=== PATIENT | male | born 1975 | race Caucasian/White ===

== ENCOUNTER 2023-05-28 19:40 | Emergency (ER) | payer OTHER ==
[~2023-05-28] VITALS: Ht 165.1 cm; Wt 62.4 kg
[~2023-05-28 19:40] MED LIST: ACET-812 PO; NAPR220T67 PO
[2023-05-28 19:41] VITALS: BP 150/95; PULSE 88; TEMP 98.4; O2SAT 99
[2023-05-28] MEDS ORDERED: SULF1TAB49 PO (21:24)
[2023-05-28] MEDS ORDERED: NAPR-56 PO (21:24)
[2023-05-28 21:46] VITALS: RESP 16
[2023-05-28] MEDS: ketorolac trometh inj. 60 MG/2 ML VIAL IM ONE (21:46)
== END 2023-05-28 21:53 | disposition home or self-care (01) ==
LOC: ER 19:40
DX: L03.316 Cellulitis of umbilicus (principal); Z79.899 Other long term (current) drug therapy
CPT/HCPCS: 96372; 99283; J1885

== ENCOUNTER 2023-05-31 17:27 | Inpatient (IN) | payer OTHER ==
[~2023-05-31] VITALS: Ht 165.1 cm; Wt 61.2 kg
[~2023-05-31 17:27] MED LIST changes: +NAPR-56 PO; +SULF1TAB49 PO
[2023-05-31 18:19] LABS: BASOPHILS # (AUTO) 0.1 X10'3 (0-0.2); BASOPHILS % (AUTO) 0.6 % (0-1); EOSINOPHILS % (AUTO) 0.2 % (0-6); HEMATOCRIT 42.4 % (42.0-52.0); HEMOGLOBIN 14.2 g/dl (14.0-17.9); LYMPHOCYTES # (AUTO) 1.1 X10'3 (1.1-4.8); LYMPHOCYTES % (AUTO) 9.2 % (21-51); MEAN CORPUSCULAR HEMOGLOBIN 28.2 PG (27.0-31.0); MEAN CORPUSCULAR HGB CONC 33.5 g/dL (33.0-36.5); MEAN CORPUSCULAR VOLUME 84.1 FL (78-98); MEAN PLATELET VOLUME 9.7 FL (7.4-10.4); MONOCYTES # (AUTO) 0.9 X10'3 (0-0.9); MONOCYTES % (AUTO) 7.8 % (2-12); NEUTROPHILS # (AUTO) 9.6 X10'3 (1.8-7.7); NEUTROPHILS % (AUTO) 82.2 % (42-75); PLATELET COUNT 202 X10'3 (140-440); RED BLOOD COUNT 5.04 X10'6 (4.70-6.10); RED CELL DISTRIBUTION WIDTH 13.8 % (11.5-14.5); WHITE BLOOD COUNT 11.6 X10'3 (4.5-11.0)
[2023-05-31 18:43] LABS: ALBUMIN 3.9 G/DL (3.4-5.0); ANION GAP 9 (8-16); BLOOD UREA NITROGEN 19 MG/DL (7-18); BUN/CREATININE RATIO 15.2 (10.0-20.0); CHLORIDE 101 MMOL/L (99-107); CREATININE 1.25 MG/DL (0.60-1.10); GLUCOSE 114 MG/DL (70-104); POTASSIUM 5.3 MMOL/L (3.5-5.1); PRO BRAIN NATRIURETIC PEPTIDE < 30 PG/ML (0-125); SODIUM 137 MMOL/L (135-145); TOTAL CARBON DIOXIDE 27.5 MMOL/L (24-32); eCRCL 61 ML/MIN; eGFR 61 ML/MIN
[2023-05-31] MEDS ORDERED: iohexol 300mg/ml 100ml inj. ONE (19:25)
[2023-05-31] MEDS ORDERED: potassium Cl 40MEQ/1/2NS 520ml 520 ML IV PRN (21:10)
[2023-05-31] MEDS ORDERED: magnesium Cl slow-release 64mg tablet PO PRN (21:10)
[2023-05-31] MEDS ORDERED: magnesium hydroxide 30ml (MOM) UD suspension PO PRN (21:10)
[2023-05-31] MEDS ORDERED: acetaminophen 325mg tablet PO PRN (21:10)
[2023-05-31] MEDS ORDERED: magnesium 2GM in 50ml NS 50 ML IV PRN (21:10)
[2023-05-31] MEDS ORDERED: potassium Cl 20 mEq SR tablet PO PRN ×2 (21:10)
[2023-05-31] MEDS ORDERED: mag hydrox/Alum hydrox/simeth 30ml oral suspension PO PRN (21:10)
[2023-05-31] MEDS ORDERED: magnesium 4gm in 100ml NS 100 ML IV PRN (21:10)
[2023-05-31] MEDS: ondansetron/PF 4mg/2ml inj IV PRN (22:25)
[2023-05-31] MEDS: normal saline 1000ml 1,000 ML IV SCH (22:26)
[2023-05-31] MEDS: HYDROcodone/acetaminophen 5mg/325mg tablet PO PRN (22:26)
[2023-05-31] MEDS: ceFAZolin/D5W- 1GM premix 50 ML IV SCH (22:30)
[2023-05-31 23:00] VITALS: RESP 18; O2SAT 98
[2023-05-31 23:30] VITALS: BP 118/74; PULSE 78; RESP 16; TEMP 97; O2SAT 96
[2023-06-01] MEDS: morphine 2 MG/ML inj. syringe IV PRN (03:33)
[2023-06-01 06:00] VITALS: BP 120/77; PULSE 81; RESP 18; TEMP 98.2; O2SAT 98
[2023-06-01] MEDS: docusate sod 100mg capsule PO SCH (07:38)
[2023-06-01 07:46] LABS: BASOPHILS # (AUTO) 0.1 X10'3 (0-0.2); BASOPHILS % (AUTO) 0.9 % (0-1); EOSINOPHILS # (AUTO) 0.1 X10'3 (0-0.9); EOSINOPHILS % (AUTO) 1.1 % (0-6); HEMATOCRIT 39.1 % (42.0-52.0); HEMOGLOBIN 13.1 g/dl (14.0-17.9); LYMPHOCYTES # (AUTO) 1.2 X10'3 (1.1-4.8); LYMPHOCYTES % (AUTO) 14.4 % (21-51); MEAN CORPUSCULAR HEMOGLOBIN 28.1 PG (27.0-31.0); MEAN CORPUSCULAR HGB CONC 33.4 g/dL (33.0-36.5); MEAN CORPUSCULAR VOLUME 83.9 FL (78-98); MEAN PLATELET VOLUME 9.6 FL (7.4-10.4); MONOCYTES # (AUTO) 0.9 X10'3 (0-0.9); MONOCYTES % (AUTO) 10.6 % (2-12); NEUTROPHILS # (AUTO) 6.1 X10'3 (1.8-7.7); PLATELET COUNT 172 X10'3 (140-440); RED BLOOD COUNT 4.66 X10'6 (4.70-6.10); RED CELL DISTRIBUTION WIDTH 13.5 % (11.5-14.5); WHITE BLOOD COUNT 8.3 X10'3 (4.5-11.0)
[2023-06-01 08:00] VITALS: RESP 18; O2SAT 98
[2023-06-01] MEDS: K and/or MAG REPLACEMENT MC SCH (08:00)
[2023-06-01 10:02] LABS: ALANINE AMINOTRANSFERASE 27 U/L (12-78); ALBUMIN/GLOBULIN RATIO 0.8 (1.1-1.5); ALKALINE PHOSPHATASE 85 IU/L (46-116); ANION GAP 9 (8-16); ASPARTATE AMINO TRANSFERASE 9 U/L (10-37); BILIRUBIN,TOTAL 0.6 MG/DL (0.1-1.0); BLOOD UREA NITROGEN 17 MG/DL (7-18); BUN/CREATININE RATIO 14.8 (10.0-20.0); CALCIUM 8.2 MG/DL (8.5-10.1); CHLORIDE 103 MMOL/L (99-107); CREATININE 1.15 MG/DL (0.60-1.10); GLUCOSE 87 MG/DL (70-104); POTASSIUM 4.9 MMOL/L (3.5-5.1); SODIUM 137 MMOL/L (135-145); TOTAL CARBON DIOXIDE 25.1 MMOL/L (24-32); TOTAL PROTEIN 6.9 G/DL (6.4-8.2); eCRCL 67 ML/MIN; eGFR 67 ML/MIN
[2023-06-01] MEDS: metoclopramide 5 mg/ml inj IV PRN (12:41)
[2023-06-01 14:53] VITALS: BP 110/65; PULSE 96; RESP 16; O2SAT 97
[2023-06-01 14:58] VITALS: BP 107/71; PULSE 80; RESP 18; O2SAT 98
[2023-06-01] MEDS ORDERED: DOXY150T3 PO (15:48)
[2023-06-01] MEDS ORDERED: ONDA4TAB12 PO (15:48)
[2023-06-01 18:00] VITALS: BP 105/69; PULSE 94; RESP 14; TEMP 97.9; O2SAT 96
[2023-06-01 21:29] VITALS: RESP 16
== END 2023-06-01 22:03 | disposition home or self-care (01) | DRG 602 ==
LOC: ER 17:28 → ED HOLD 21:15 → ORTHO 4S 23:30
PROVIDERS: ADMIT Internal Medicine; ATTEND Internal Medicine
PROC: BW211ZZ Computerized Tomography (CT Scan) of Abdomen and Pelvis using Low Osmolar Contrast (ICD-10-PCS; 2023-05-31)
PROC: 0W9F3ZZ Drainage of Abdominal Wall, Percutaneous Approach (ICD-10-PCS; principal; 2023-06-01)
DX: L02.216 Cutaneous abscess of umbilicus (principal); N17.0 Acute kidney failure with tubular necrosis; K42.9 Umbilical hernia without obstruction or gangrene
CPT/HCPCS: 10160; 36415; 71045; 74176; 76942; 80048; 80053; 83880; 84145; 84484; 85025; 85651; 87070; 87075; 87077; 87081; 87102; 87186; 93005; 99285; G0378; J0690; J2270; J2405; J2765; J3490; J7030; Q9967

== ENCOUNTER 2023-06-06 09:45 | Inpatient (IN) | payer OTHER ==
[~2023-06-06] VITALS: Ht 165.1 cm; Wt 70.0 kg
[~2023-06-06 09:45] MED LIST changes: +DOXY150T3 PO; -NAPR-56 PO; -NAPR220T67 PO; +ONDA4TAB12 PO; -SULF1TAB49 PO
[2023-06-06] MEDS: piperacillin/tazo 4.5gm/100ml IVPB IV ONE (10:55)
[2023-06-06] MEDS: VANCOMYCIN 1,500MG in normal saline IV soln 300 ML IV ONE (10:55)
[2023-06-06] MEDS ORDERED: potassium Cl 40MEQ/1/2NS 520ml 520 ML IV PRN (12:40)
[2023-06-06] MEDS ORDERED: magnesium 4gm in 100ml NS 100 ML IV PRN (12:40)
[2023-06-06] MEDS ORDERED: magnesium 2GM in 50ml NS 50 ML IV PRN (12:40)
[2023-06-06] MEDS ORDERED: potassium Cl 20 mEq SR tablet PO PRN ×2 (12:40)
[2023-06-06] MEDS ORDERED: acetaminophen 325mg tablet PO PRN (12:40)
[2023-06-06] MEDS ORDERED: magnesium Cl slow-release 64mg tablet PO PRN (12:40)
[2023-06-06] MEDS: normal saline 1000ml 1,000 ML IV SCH (13:04)
[2023-06-06 13:16] LABS: BASOPHILS % (AUTO) 0.4 % (0-1); EOSINOPHILS # (AUTO) 0.1 X10'3 (0-0.9); EOSINOPHILS % (AUTO) 0.6 % (0-6); HEMATOCRIT 41.9 % (42.0-52.0); HEMOGLOBIN 13.8 g/dl (14.0-17.9); LYMPHOCYTES # (AUTO) 0.7 X10'3 (1.1-4.8); LYMPHOCYTES % (AUTO) 6.3 % (21-51); MEAN CORPUSCULAR HGB CONC 32.9 g/dL (33.0-36.5); MEAN CORPUSCULAR VOLUME 85.2 FL (78-98); MEAN PLATELET VOLUME 8.7 FL (7.4-10.4); NEUTROPHILS # (AUTO) 8.9 X10'3 (1.8-7.7); NEUTROPHILS % (AUTO) 83.7 % (42-75); PLATELET COUNT 254 X10'3 (140-440); RED BLOOD COUNT 4.92 X10'6 (4.70-6.10); RED CELL DISTRIBUTION WIDTH 13.6 % (11.5-14.5); WHITE BLOOD COUNT 10.7 X10'3 (4.5-11.0)
[2023-06-06] MEDS: morphine 2 MG/ML inj. syringe IV PRN ×2 (13:19→19:11)
[2023-06-06] MEDS: ondansetron/PF 4mg/2ml inj IV PRN (13:19)
[2023-06-06 13:26] LABS: ALBUMIN 3.2 G/DL (3.4-5.0); ANION GAP 10 (8-16); BLOOD UREA NITROGEN 20 MG/DL (7-18); BUN/CREATININE RATIO 15.4 (10.0-20.0); CALCIUM 8.6 MG/DL (8.5-10.1); CHLORIDE 99 MMOL/L (99-107); GLUCOSE 102 MG/DL (70-104); MAGNESIUM 2.5 MG/DL (1.5-2.4); POTASSIUM 5.5 MMOL/L (3.5-5.1); SODIUM 134 MMOL/L (135-145); TOTAL CARBON DIOXIDE 25.1 MMOL/L (24-32); eCRCL 59 ML/MIN; eGFR 58 ML/MIN
[2023-06-06] MEDS ORDERED: iohexol 300mg/ml 100ml inj. ONE (13:45)
[2023-06-06 14:26] LABS: BILIRUBIN,URINE SMALL (Neg); CLARITY,URINE CLEAR (Clear); COLOR,URINE YELLOW (Yellow); GLUCOSE, URINE NEGATIVE (Neg); KETONES,URINE 15 mg/dl (Neg); LEUKOCYTE ESTERASE ,URINE NEGATIVE (Neg); NITRITES, URINE NEGATIVE (Neg); OCCULT BLOOD,URINE NEGATIVE (Neg); PROTEIN,URINE NEGATIVE (Neg)
[2023-06-06 14:30] LABS: UA COLLECTION TYPE VOIDED
[2023-06-06] MEDS: SODIUM ZIRCONIUM CYCLOSILICATE 10 GM POWD.PACK PO ONE (14:55)
[2023-06-06] MEDS: dextrose 50%-water 50ml dispensing syringe IV ONE (15:32)
[2023-06-06] MEDS: insulin regular, human 10 units/0.1 ml syringe IV ONE (15:33)
[2023-06-06] MEDS ORDERED: piperacillin/tazo 3.375gm/50ml 50 ML IV SCH ×2 (16:00)
[2023-06-06 17:12] VITALS: BP 120/66; PULSE 85; RESP 16; TEMP 97.8; O2SAT 97
[2023-06-06 20:00] VITALS: RESP 18; O2SAT 99
[2023-06-06] MEDS: piperacillin/tazo 3.375gm/50ml 50 ML IV SCH (20:07)
[2023-06-06] MEDS: enoxaparin 40mg/0.4ml syringe SQ SCH (20:32)
[2023-06-06 22:00] VITALS: BP 114/66; PULSE 81; RESP 16; TEMP 98.8
[2023-06-06] MEDS: diatr meglu/diatrizoate 30ml oral sol.-(3 dose) bottle PO SCH (22:18)
[2023-06-06] MEDS: vancomycin/NS 1 GM ADD-VANTAGE 250 ML IV SCH (23:19)
[2023-06-07] VITALS (27 sets, daily range): BP systolic 112–152; BP diastolic 63–88; PULSE 76–95; RESP 14–23; TEMP 97.1–98.7; O2SAT 90–100
[2023-06-07] MEDS ORDERED: SULF1TAB49 PO (03:23)
[2023-06-07] MEDS ORDERED: NAPR-56 PO (03:23)
[2023-06-07] MEDS ORDERED: HYDR-3965 PO (03:23)
[2023-06-07 07:52] LABS: BASOPHILS # (AUTO) 0.1 X10'3 (0-0.2); BASOPHILS % (AUTO) 0.6 % (0-1); EOSINOPHILS # (AUTO) 0.1 X10'3 (0-0.9); EOSINOPHILS % (AUTO) 1.2 % (0-6); HEMATOCRIT 36.9 % (42.0-52.0); HEMOGLOBIN 12.5 g/dl (14.0-17.9); LYMPHOCYTES # (AUTO) 1.1 X10'3 (1.1-4.8); LYMPHOCYTES % (AUTO) 12.4 % (21-51); MEAN CORPUSCULAR HEMOGLOBIN 28.4 PG (27.0-31.0); MEAN CORPUSCULAR HGB CONC 33.8 g/dL (33.0-36.5); MEAN PLATELET VOLUME 8.8 FL (7.4-10.4); MONOCYTES # (AUTO) 0.8 X10'3 (0-0.9); MONOCYTES % (AUTO) 9.2 % (2-12); NEUTROPHILS # (AUTO) 6.8 X10'3 (1.8-7.7); NEUTROPHILS % (AUTO) 76.6 % (42-75); PLATELET COUNT 278 X10'3 (140-440); RED CELL DISTRIBUTION WIDTH 13.4 % (11.5-14.5); WHITE BLOOD COUNT 8.9 X10'3 (4.5-11.0)
[2023-06-07 08:18] LABS: APTT 36 SECONDS (22-32); INR 1.1 INR; PROTHROMBIN TIME 11.9 SECONDS (9.0-12.0)
[2023-06-07 08:44] LABS: ALANINE AMINOTRANSFERASE 39 U/L (12-78); ALBUMIN 2.7 G/DL (3.4-5.0); ALBUMIN/GLOBULIN RATIO 0.6 (1.1-1.5); ALKALINE PHOSPHATASE 117 IU/L (46-116); ANION GAP 10 (8-16); ASPARTATE AMINO TRANSFERASE 15 U/L (10-37); BILIRUBIN,TOTAL 0.6 MG/DL (0.1-1.0); BLOOD UREA NITROGEN 14 MG/DL (7-18); BUN/CREATININE RATIO 12.7 (10.0-20.0); CALCIUM 7.8 MG/DL (8.5-10.1); CHLORIDE 102 MMOL/L (99-107); GLUCOSE 89 MG/DL (70-104); POTASSIUM 4.7 MMOL/L (3.5-5.1); SODIUM 136 MMOL/L (135-145); TOTAL CARBON DIOXIDE 23.8 MMOL/L (24-32); TOTAL PROTEIN 6.9 G/DL (6.4-8.2); eCRCL 70 ML/MIN; eGFR 71 ML/MIN
[2023-06-07] MEDS: LidoCAINE 2% Topical Jelly 11mL syringe TOP ONE (09:22)
[2023-06-07] MEDS ORDERED: diatrizoate meglumine 300mg/ml (30%) 300ml UR ONE (11:00)
[2023-06-07] MEDS ORDERED: BUPIVAcaine 2.5mg/ml inj 50ml vial (contains preservative) ONE ×2 (13:42→14:59)
[2023-06-07] MEDS ORDERED: rocuronium 10mg/ml inj IV ONE ×2 (14:02→14:07)
[2023-06-07] MEDS ORDERED: midazolam 1 mg/ML 2ml injection ONE (14:02)
[2023-06-07] MEDS ORDERED: fentaNYL/PF 50MCG/1 ML 2ML syringe ONE (14:02)
[2023-06-07] MEDS ORDERED: LIDOcaine 2% (20mg/ml) 5ml vial ONE (14:07)
[2023-06-07] MEDS ORDERED: sevoflurane 250ml liquid IH ONE (14:07)
[2023-06-07] MEDS ORDERED: propofol inj 20 ML IV ONE (14:07)
[2023-06-07] MEDS ORDERED: dexamethasone sod phosphate 10mg/ml inj ONE (14:07)
[2023-06-07] MEDS ORDERED: ondansetron/PF 4mg/2ml inj ONE (14:26)
[2023-06-07] MEDS ORDERED: meperidine/PF 25mg/ml syringe ONE (14:41)
[2023-06-07] MEDS ORDERED: BUPIVACAINE liposomal/PF 13.3 MG/ML vial IM ONE (14:59)
[2023-06-07] MEDS ORDERED: morphine 2 MG/ML inj. syringe IV PRN (15:00)
[2023-06-07] MEDS ORDERED: labetalol 20mg/4ml (5mg/ml) syringe IV PRN (15:00)
[2023-06-07] MEDS: ringers solution, lacted 1,000 ML IV SCH (15:00)
[2023-06-07] MEDS ORDERED: ondansetron/PF 4mg/2ml inj IV PRN (15:00)
[2023-06-07] MEDS ORDERED: meperidine/PF 25mg/ml syringe IV PRN ×2 (15:00)
[2023-06-07] MEDS ORDERED: proCHLORperazine 10 MG/2 ml inj IV PRN (15:00)
[2023-06-07] MEDS ORDERED: enalaprilat dihydrate 2.5mg/2ml vial IV PRN (15:00)
[2023-06-07] MEDS ORDERED: neostigmine methylsulfate 1 MG/ML 10ml vial ONE (15:32)
[2023-06-07] MEDS ORDERED: glycopyrrolate 0.2mg/ml inj ONE (15:32)
[2023-06-07] MEDS ORDERED: labetalol 20mg/4ml (5mg/ml) syringe IV ONE (15:35)
[2023-06-07] MEDS: meperidine/PF 25mg/ml syringe IV PRN (16:09)
[2023-06-07] MEDS: morphine 4 MG/ML inj SYRINge IV PRN (16:26)
[2023-06-07] MEDS ORDERED: HYDROmorphone/PF 0.2 MG/ML SYRINGE IV PRN ×2 (17:20)
[2023-06-07] MEDS: acetaminophen 1,000mg/100ml IV 100 ML IV ONE (17:36)
[2023-06-07] MEDS: ketorolac trometh. 30mg/ml inj. IV SCH (19:09)
[2023-06-07] MEDS: VANCOMYCIN LEVEL IV ONE (22:30)
[2023-06-08] MEDS: HYDROmorphone inj. 0.5 MG/0.5 ML DISP.SYRIN IV PRN (04:54)
[2023-06-08 06:00] VITALS: BP 116/72; PULSE 71; RESP 14; TEMP 98; O2SAT 97
[2023-06-08 06:02] LABS: BASOPHILS % (AUTO) 0.4 % (0-1); EOSINOPHILS % (AUTO) 0 % (0-6); HEMATOCRIT 34.3 % (42.0-52.0); HEMOGLOBIN 11.5 g/dl (14.0-17.9); LYMPHOCYTES # (AUTO) 0.7 X10'3 (1.1-4.8); LYMPHOCYTES % (AUTO) 7.9 % (21-51); MEAN CORPUSCULAR HEMOGLOBIN 28.3 PG (27.0-31.0); MEAN CORPUSCULAR HGB CONC 33.6 g/dL (33.0-36.5); MEAN PLATELET VOLUME 8.9 FL (7.4-10.4); MONOCYTES # (AUTO) 0.8 X10'3 (0-0.9); MONOCYTES % (AUTO) 9.2 % (2-12); NEUTROPHILS # (AUTO) 7.4 X10'3 (1.8-7.7); NEUTROPHILS % (AUTO) 82.5 % (42-75); PLATELET COUNT 279 X10'3 (140-440); RED BLOOD COUNT 4.09 X10'6 (4.70-6.10); RED CELL DISTRIBUTION WIDTH 13.2 % (11.5-14.5)
[2023-06-08 06:20] LABS: ALANINE AMINOTRANSFERASE 28 U/L (12-78); ALBUMIN 2.2 G/DL (3.4-5.0); ALBUMIN/GLOBULIN RATIO 0.5 (1.1-1.5); ALKALINE PHOSPHATASE 91 IU/L (46-116); ANION GAP 9 (8-16); ASPARTATE AMINO TRANSFERASE 11 U/L (10-37); BILIRUBIN,TOTAL 0.3 MG/DL (0.1-1.0); BLOOD UREA NITROGEN 11 MG/DL (7-18); BUN/CREATININE RATIO 11.6 (10.0-20.0); CHLORIDE 106 MMOL/L (99-107); CREATININE 0.95 MG/DL (0.60-1.10); GLUCOSE 109 MG/DL (70-104); POTASSIUM 4.5 MMOL/L (3.5-5.1); SODIUM 140 MMOL/L (135-145); TOTAL CARBON DIOXIDE 24.9 MMOL/L (24-32); TOTAL PROTEIN 6.4 G/DL (6.4-8.2); eCRCL 81 ML/MIN; eGFR 84 ML/MIN
[2023-06-08 10:00] VITALS: BP 105/54; PULSE 76; RESP 14; TEMP 97.5; O2SAT 98
[2023-06-08] MEDS: VANCOmycin 1250MG/NS 250ml Bag 250 ML IV SCH (10:31)
[2023-06-08] MEDS: HYDROcodone/acetaminophen 10/325mg tab PO PRN (12:55)
[2023-06-08 18:00] VITALS: BP 157/70; PULSE 74; RESP 16; TEMP 98.2; O2SAT 95
[2023-06-08 20:00] VITALS: RESP 16; O2SAT 95
[2023-06-08 22:00] VITALS: BP 99/49; PULSE 74; RESP 16; TEMP 98.2; O2SAT 93
[2023-06-09 05:51] LABS: BASOPHILS # (AUTO) 0.3 X10'3 (0-0.2); BASOPHILS % (AUTO) 3.9 % (0-1); EOSINOPHILS # (AUTO) 0.2 X10'3 (0-0.9); EOSINOPHILS % (AUTO) 2.6 % (0-6); HEMATOCRIT 32.3 % (42.0-52.0); HEMOGLOBIN 10.9 g/dl (14.0-17.9); LYMPHOCYTES # (AUTO) 1.1 X10'3 (1.1-4.8); LYMPHOCYTES % (AUTO) 16.4 % (21-51); MEAN CORPUSCULAR HEMOGLOBIN 28.2 PG (27.0-31.0); MEAN CORPUSCULAR HGB CONC 33.7 g/dL (33.0-36.5); MEAN CORPUSCULAR VOLUME 83.7 FL (78-98); MEAN PLATELET VOLUME 8.6 FL (7.4-10.4); MONOCYTES # (AUTO) 0.4 X10'3 (0-0.9); MONOCYTES % (AUTO) 6.9 % (2-12); NEUTROPHILS # (AUTO) 4.6 X10'3 (1.8-7.7); NEUTROPHILS % (AUTO) 70.2 % (42-75); PLATELET COUNT 270 X10'3 (140-440); RED BLOOD COUNT 3.86 X10'6 (4.70-6.10); RED CELL DISTRIBUTION WIDTH 13.2 % (11.5-14.5); WHITE BLOOD COUNT 6.5 X10'3 (4.5-11.0)
[2023-06-09 05:54] LABS: ALANINE AMINOTRANSFERASE 28 U/L (12-78); ALBUMIN 2.1 G/DL (3.4-5.0); ALBUMIN/GLOBULIN RATIO 0.6 (1.1-1.5); ALKALINE PHOSPHATASE 79 IU/L (46-116); ANION GAP 4 (8-16); ASPARTATE AMINO TRANSFERASE 19 U/L (10-37); BILIRUBIN,TOTAL 0.3 MG/DL (0.1-1.0); BLOOD UREA NITROGEN 9 MG/DL (7-18); BUN/CREATININE RATIO 9.4 (10.0-20.0); CALCIUM 7.6 MG/DL (8.5-10.1); CHLORIDE 108 MMOL/L (99-107); CREATININE 0.96 MG/DL (0.60-1.10); GLUCOSE 98 MG/DL (70-104); POTASSIUM 4.1 MMOL/L (3.5-5.1); SODIUM 142 MMOL/L (135-145); TOTAL CARBON DIOXIDE 29.6 MMOL/L (24-32); TOTAL PROTEIN 5.8 G/DL (6.4-8.2); eCRCL 80 ML/MIN; eGFR 83 ML/MIN
[2023-06-09 06:00] VITALS: BP 128/71; PULSE 78; RESP 18; TEMP 98.2; O2SAT 95
[2023-06-09 08:46] VITALS: RESP 16
[2023-06-09 10:00] VITALS: BP_SYST 116; BP_SYST 141; BP_DIAS 59; BP_DIAS 91; PULSE 68; PULSE 83; RESP 14; RESP 18; TEMP 97.8; TEMP 98.1; O2SAT 97
[2023-06-09] MEDS: HYDROcodone/acetaminophen 5mg/325mg tablet PO PRN (10:55)
[2023-06-09] MEDS: lactobacillus rhamnosus 10,000 MMU CELLS/CAPSULE PO SCH (17:56)
[2023-06-09 19:00] VITALS: BP 116/68; PULSE 75; RESP 18; TEMP 98.6; O2SAT 97
[2023-06-09] MEDS: VANCOMYCIN LEVEL IJ ONE (22:50)
[2023-06-10] VITALS (7 sets, daily range): BP systolic 112–116; BP diastolic 58–71; PULSE 65–92; RESP 14–16; TEMP 97.9–98.1; O2SAT 16–98
[2023-06-10 06:07] LABS: INR 1.1 INR; PROTHROMBIN TIME 11.5 SECONDS (9.0-12.0)
[2023-06-10 06:18] LABS: BASOPHILS # (AUTO) 0.1 X10'3 (0-0.2); EOSINOPHILS # (AUTO) 0.3 X10'3 (0-0.9); EOSINOPHILS % (AUTO) 4.1 % (0-6); HEMATOCRIT 30.6 % (42.0-52.0); HEMOGLOBIN 10.2 g/dl (14.0-17.9); LYMPHOCYTES # (AUTO) 1.4 X10'3 (1.1-4.8); LYMPHOCYTES % (AUTO) 22.1 % (21-51); MEAN CORPUSCULAR HGB CONC 33.4 g/dL (33.0-36.5); MEAN CORPUSCULAR VOLUME 83.8 FL (78-98); MEAN PLATELET VOLUME 8.7 FL (7.4-10.4); MONOCYTES # (AUTO) 0.7 X10'3 (0-0.9); MONOCYTES % (AUTO) 10.3 % (2-12); NEUTROPHILS % (AUTO) 62.5 % (42-75); PLATELET COUNT 288 X10'3 (140-440); RED BLOOD COUNT 3.65 X10'6 (4.70-6.10); RED CELL DISTRIBUTION WIDTH 13.3 % (11.5-14.5); WHITE BLOOD COUNT 6.5 X10'3 (4.5-11.0)
[2023-06-10 06:27] LABS: ALANINE AMINOTRANSFERASE 34 U/L (12-78); ALBUMIN 2.1 G/DL (3.4-5.0); ALBUMIN/GLOBULIN RATIO 0.6 (1.1-1.5); ALKALINE PHOSPHATASE 77 IU/L (46-116); ANION GAP 7 (8-16); ASPARTATE AMINO TRANSFERASE 33 U/L (10-37); BILIRUBIN,TOTAL 0.2 MG/DL (0.1-1.0); BLOOD UREA NITROGEN 15 MG/DL (7-18); BUN/CREATININE RATIO 15.2 (10.0-20.0); CALCIUM 7.8 MG/DL (8.5-10.1); CHLORIDE 107 MMOL/L (99-107); CREATININE 0.99 MG/DL (0.60-1.10); GLUCOSE 98 MG/DL (70-104); POTASSIUM 3.9 MMOL/L (3.5-5.1); SODIUM 142 MMOL/L (135-145); TOTAL CARBON DIOXIDE 27.9 MMOL/L (24-32); TOTAL PROTEIN 5.8 G/DL (6.4-8.2); eCRCL 78 ML/MIN; eGFR 80 ML/MIN
[2023-06-11 06:54] VITALS: BP 118/77; PULSE 72; RESP 14; TEMP 97.6; O2SAT 95
[2023-06-11 07:42] LABS: BASOPHILS # (AUTO) 0.1 X10'3 (0-0.2); BASOPHILS % (AUTO) 1.1 % (0-1); EOSINOPHILS # (AUTO) 0.2 X10'3 (0-0.9); EOSINOPHILS % (AUTO) 3.8 % (0-6); HEMATOCRIT 31.6 % (42.0-52.0); HEMOGLOBIN 10.7 g/dl (14.0-17.9); LYMPHOCYTES % (AUTO) 15.9 % (21-51); MEAN CORPUSCULAR HEMOGLOBIN 28.4 PG (27.0-31.0); MEAN CORPUSCULAR HGB CONC 33.9 g/dL (33.0-36.5); MEAN CORPUSCULAR VOLUME 83.9 FL (78-98); MEAN PLATELET VOLUME 8.1 FL (7.4-10.4); MONOCYTES # (AUTO) 0.6 X10'3 (0-0.9); MONOCYTES % (AUTO) 9.9 % (2-12); NEUTROPHILS # (AUTO) 4.3 X10'3 (1.8-7.7); NEUTROPHILS % (AUTO) 69.3 % (42-75); PLATELET COUNT 303 X10'3 (140-440); RED BLOOD COUNT 3.77 X10'6 (4.70-6.10); RED CELL DISTRIBUTION WIDTH 13.4 % (11.5-14.5); WHITE BLOOD COUNT 6.2 X10'3 (4.5-11.0)
[2023-06-11 07:53] LABS: ALANINE AMINOTRANSFERASE 162 U/L (12-78); ALBUMIN 2.2 G/DL (3.4-5.0); ALBUMIN/GLOBULIN RATIO 0.6 (1.1-1.5); ALKALINE PHOSPHATASE 101 IU/L (46-116); ANION GAP 8 (8-16); ASPARTATE AMINO TRANSFERASE 115 U/L (10-37); BILIRUBIN,TOTAL 0.3 MG/DL (0.1-1.0); BLOOD UREA NITROGEN 15 MG/DL (7-18); BUN/CREATININE RATIO 11.5 (10.0-20.0); CALCIUM 7.9 MG/DL (8.5-10.1); CHLORIDE 106 MMOL/L (99-107); GLUCOSE 99 MG/DL (70-104); POTASSIUM 3.8 MMOL/L (3.5-5.1); SODIUM 142 MMOL/L (135-145); TOTAL CARBON DIOXIDE 28.4 MMOL/L (24-32); TOTAL PROTEIN 6.1 G/DL (6.4-8.2); eCRCL 59 ML/MIN; eGFR 58 ML/MIN
[2023-06-11 08:05] LABS: INR 1.1 INR; PROTHROMBIN TIME 11.4 SECONDS (9.0-12.0)
[2023-06-11 11:29] VITALS: RESP 16
[2023-06-11 12:02] VITALS: RESP 16
[2023-06-11] MEDS: lactose-reduced food (Ensure High Protein) 237ml bottle PO SCH (18:00)
[2023-06-11 19:00] VITALS: BP 115/65; PULSE 73; RESP 16; RESP 18; TEMP 98.2; O2SAT 95
[2023-06-11 22:00] VITALS: BP 114/69; PULSE 76; RESP 14; TEMP 97.9; O2SAT 93
[2023-06-12] MEDS ORDERED: Chloraseptic (Phenol) Spray 177ml MM PRN (03:55)
[2023-06-12] MEDS ORDERED: HALLS - SOOTHE MENTHOL 1.8 MG cough drop LOZENGE MM PRN (03:55)
[2023-06-12 05:32] LABS: BASOPHILS # (AUTO) 0.1 X10'3 (0-0.2); EOSINOPHILS # (AUTO) 0.3 X10'3 (0-0.9); EOSINOPHILS % (AUTO) 3.2 % (0-6); HEMATOCRIT 29.8 % (42.0-52.0); HEMOGLOBIN 10.3 g/dl (14.0-17.9); LYMPHOCYTES # (AUTO) 0.9 X10'3 (1.1-4.8); LYMPHOCYTES % (AUTO) 11.2 % (21-51); MEAN CORPUSCULAR HEMOGLOBIN 28.9 PG (27.0-31.0); MEAN CORPUSCULAR HGB CONC 34.4 g/dL (33.0-36.5); MEAN CORPUSCULAR VOLUME 84.1 FL (78-98); MEAN PLATELET VOLUME 8.6 FL (7.4-10.4); MONOCYTES # (AUTO) 0.9 X10'3 (0-0.9); MONOCYTES % (AUTO) 10.6 % (2-12); NEUTROPHILS # (AUTO) 6.2 X10'3 (1.8-7.7); PLATELET COUNT 316 X10'3 (140-440); RED BLOOD COUNT 3.55 X10'6 (4.70-6.10); RED CELL DISTRIBUTION WIDTH 13.3 % (11.5-14.5); WHITE BLOOD COUNT 8.4 X10'3 (4.5-11.0)
[2023-06-12 05:38] LABS: INR 1.1 INR
[2023-06-12 05:44] LABS: PROTHROMBIN TIME 11.4 SECONDS (9.0-12.0)
[2023-06-12 07:04] VITALS: BP 121/72; PULSE 71; RESP 16; TEMP 97.6; O2SAT 93
[2023-06-12 07:55] VITALS: RESP 16; O2SAT 93
[2023-06-12 08:43] LABS: ALANINE AMINOTRANSFERASE 216 U/L (12-78); ALBUMIN 2.3 G/DL (3.4-5.0); ALBUMIN/GLOBULIN RATIO 0.6 (1.1-1.5); ALKALINE PHOSPHATASE 112 IU/L (46-116); ANION GAP 7 (8-16); ASPARTATE AMINO TRANSFERASE 112 U/L (10-37); BILIRUBIN,TOTAL 0.3 MG/DL (0.1-1.0); BLOOD UREA NITROGEN 20 MG/DL (7-18); BUN/CREATININE RATIO 9.4 (10.0-20.0); CHLORIDE 108 MMOL/L (99-107); CREATININE 2.13 MG/DL (0.60-1.10); GLUCOSE 118 MG/DL (70-104); SODIUM 142 MMOL/L (135-145); TOTAL CARBON DIOXIDE 26.9 MMOL/L (24-32); TOTAL PROTEIN 6.1 G/DL (6.4-8.2); eCRCL 36 ML/MIN; eGFR 33 ML/MIN
[2023-06-12] MEDS: amox tr/potassium clavulanate 875/125mg TAB PO SCH (09:38)
[2023-06-12 10:00] VITALS: BP 128/77; PULSE 68; RESP 16; TEMP 98.1; O2SAT 94
[2023-06-12] MEDS: normal saline 1000ml 1,000 ML IV SCH (12:25)
[2023-06-12] MEDS: vancomycin inj 1,000 MG in normal saline 250ml IV soln 250 ML IV SCH (13:52)
[2023-06-12] MEDS: fluticasone nasal spray 16GM bottle NS SCH (13:52)
[2023-06-12 14:53] LABS: BILIRUBIN,URINE NEGATIVE (Neg); CLARITY,URINE CLEAR (Clear); COLOR,URINE YELLOW (Yellow); GLUCOSE, URINE NEGATIVE (Neg); KETONES,URINE NEGATIVE (Neg); LEUKOCYTE ESTERASE ,URINE NEGATIVE (Neg); NITRITES, URINE NEGATIVE (Neg); OCCULT BLOOD,URINE NEGATIVE (Neg); PH,URINE 6.5 (4.8-8.0); PROTEIN,URINE NEGATIVE (Neg); UROBILINOGEN,URINE 0.2 E.U/dL (0.2-1.0)
[2023-06-12 15:00] LABS: UA COLLECTION TYPE NON-SPECIFIED
[2023-06-12 16:09] LABS: UA EOSINOPHILS NO EOS /HPF
[2023-06-12 18:10] VITALS: BP 126/73; PULSE 97; RESP 16; TEMP 98.2; O2SAT 98
[2023-06-12 19:30] VITALS: RESP 16; O2SAT 98
[2023-06-12 22:00] VITALS: BP 149/75; PULSE 86; RESP 18; TEMP 98.8; O2SAT 94
[2023-06-12] MEDS ORDERED: simethicone 80mg chew tab PO PRN (23:40)
[2023-06-12] MEDS ORDERED: metoclopramide 5 mg/ml inj IV PRN (23:40)
[2023-06-13] VITALS (9 sets, daily range): BP systolic 106–134; BP diastolic 59–75; PULSE 74–84; RESP 16–18; TEMP 97.8–99.4; O2SAT 95–99
[2023-06-13 07:21] LABS: HEMOGLOBIN 10.1 g/dl (14.0-17.9)
[2023-06-13 07:24] LABS: BASOPHILS # (AUTO) 0.1 X10'3 (0-0.2); BASOPHILS % (AUTO) 0.9 % (0-1); EOSINOPHILS # (AUTO) 0.2 X10'3 (0-0.9); HEMATOCRIT 30.1 % (42.0-52.0); LYMPHOCYTES % (AUTO) 10.3 % (21-51); MEAN CORPUSCULAR HEMOGLOBIN 28.2 PG (27.0-31.0); MEAN CORPUSCULAR HGB CONC 33.6 g/dL (33.0-36.5); MEAN PLATELET VOLUME 8.1 FL (7.4-10.4); MONOCYTES % (AUTO) 10.9 % (2-12); NEUTROPHILS # (AUTO) 7.3 X10'3 (1.8-7.7); NEUTROPHILS % (AUTO) 75.9 % (42-75); PLATELET COUNT 311 X10'3 (140-440); RED BLOOD COUNT 3.59 X10'6 (4.70-6.10); RED CELL DISTRIBUTION WIDTH 13.3 % (11.5-14.5); WHITE BLOOD COUNT 9.6 X10'3 (4.5-11.0)
[2023-06-13 07:33] LABS: INR 1.1 INR; PROTHROMBIN TIME 11.7 SECONDS (9.0-12.0)
[2023-06-13 07:38] LABS: ALANINE AMINOTRANSFERASE 247 U/L (12-78); ALBUMIN 2.2 G/DL (3.4-5.0); ALBUMIN/GLOBULIN RATIO 0.6 (1.1-1.5); ALKALINE PHOSPHATASE 122 IU/L (46-116); ANION GAP 5 (8-16); ASPARTATE AMINO TRANSFERASE 97 U/L (10-37); BILIRUBIN,TOTAL 0.3 MG/DL (0.1-1.0); BLOOD UREA NITROGEN 19 MG/DL (7-18); BUN/CREATININE RATIO 7.9 (10.0-20.0); CALCIUM 7.8 MG/DL (8.5-10.1); CHLORIDE 110 MMOL/L (99-107); CREATININE 2.39 MG/DL (0.60-1.10); GLUCOSE 105 MG/DL (70-104); LIPASE 46 U/L (16-77); POTASSIUM 4.3 MMOL/L (3.5-5.1); SODIUM 143 MMOL/L (135-145); TOTAL CARBON DIOXIDE 27.6 MMOL/L (24-32); TOTAL PROTEIN 6.1 G/DL (6.4-8.2); eCRCL 32 ML/MIN; eGFR 29 ML/MIN
[2023-06-13] MEDS: VANCOMYCIN 750MG IV in NS 250 ML IV SCH (13:44)
[2023-06-14] VITALS (8 sets, daily range): BP systolic 101–146; BP diastolic 60–80; PULSE 67–87; RESP 16–18; TEMP 98.8–99.9; O2SAT 96–99
[2023-06-14 02:35] LABS: INR 1.1 INR; PROTHROMBIN TIME 11.7 SECONDS (9.0-12.0)
[2023-06-14 02:40] LABS: ALANINE AMINOTRANSFERASE 201 U/L (12-78); ALBUMIN 2.1 G/DL (3.4-5.0); ALBUMIN/GLOBULIN RATIO 0.5 (1.1-1.5); ALKALINE PHOSPHATASE 114 IU/L (46-116); ANION GAP 5 (8-16); ASPARTATE AMINO TRANSFERASE 56 U/L (10-37); BILIRUBIN,TOTAL 0.3 MG/DL (0.1-1.0); BLOOD UREA NITROGEN 19 MG/DL (7-18); CALCIUM 7.7 MG/DL (8.5-10.1); CHLORIDE 111 MMOL/L (99-107); CREATININE 2.37 MG/DL (0.60-1.10); GLUCOSE 106 MG/DL (70-104); POTASSIUM 4.3 MMOL/L (3.5-5.1); SODIUM 144 MMOL/L (135-145); TOTAL CARBON DIOXIDE 27.8 MMOL/L (24-32); TOTAL PROTEIN 6.1 G/DL (6.4-8.2); eCRCL 32 ML/MIN; eGFR 29 ML/MIN
[2023-06-14] MEDS: acetaminophen 325mg tablet PO PRN (14:11)
[2023-06-14] MEDS: NUT.TX.IMPAIRED DIGEST FXN (Ensure Clear) 237 ML PO SCH (18:47)
[2023-06-15 05:45] VITALS: BP 131/66; PULSE 64; RESP 18; TEMP 98.5; O2SAT 96
[2023-06-15 06:14] LABS: BASOPHILS # (AUTO) 0.1 X10'3 (0-0.2); EOSINOPHILS # (AUTO) 0.2 X10'3 (0-0.9); EOSINOPHILS % (AUTO) 2.4 % (0-6); HEMATOCRIT 28.4 % (42.0-52.0); HEMOGLOBIN 9.6 g/dl (14.0-17.9); LYMPHOCYTES # (AUTO) 1.1 X10'3 (1.1-4.8); LYMPHOCYTES % (AUTO) 12.3 % (21-51); MEAN CORPUSCULAR HEMOGLOBIN 28.3 PG (27.0-31.0); MEAN CORPUSCULAR HGB CONC 33.8 g/dL (33.0-36.5); MEAN CORPUSCULAR VOLUME 83.8 FL (78-98); MONOCYTES # (AUTO) 0.8 X10'3 (0-0.9); MONOCYTES % (AUTO) 9.4 % (2-12); NEUTROPHILS # (AUTO) 6.7 X10'3 (1.8-7.7); NEUTROPHILS % (AUTO) 74.9 % (42-75); PLATELET COUNT 307 X10'3 (140-440); RED BLOOD COUNT 3.39 X10'6 (4.70-6.10); RED CELL DISTRIBUTION WIDTH 13.7 % (11.5-14.5); WHITE BLOOD COUNT 8.9 X10'3 (4.5-11.0)
[2023-06-15 06:41] LABS: ALANINE AMINOTRANSFERASE 156 U/L (12-78); ALBUMIN 2.1 G/DL (3.4-5.0); ALBUMIN/GLOBULIN RATIO 0.5 (1.1-1.5); ALKALINE PHOSPHATASE 101 IU/L (46-116); ANION GAP 10 (8-16); ASPARTATE AMINO TRANSFERASE 25 U/L (10-37); BILIRUBIN,TOTAL 0.2 MG/DL (0.1-1.0); BLOOD UREA NITROGEN 15 MG/DL (7-18); BUN/CREATININE RATIO 7.1 (10.0-20.0); CALCIUM 8.2 MG/DL (8.5-10.1); CHLORIDE 113 MMOL/L (99-107); CREATININE 2.12 MG/DL (0.60-1.10); GLUCOSE 101 MG/DL (70-104); POTASSIUM 4.3 MMOL/L (3.5-5.1); SODIUM 148 MMOL/L (135-145); TOTAL CARBON DIOXIDE 24.8 MMOL/L (24-32); TOTAL PROTEIN 6.3 G/DL (6.4-8.2); eCRCL 36 ML/MIN; eGFR 33 ML/MIN
[2023-06-15 10:00] VITALS: BP 116/72; PULSE 68; RESP 14; TEMP 98.6; O2SAT 96
[2023-06-15] MEDS: dextrose 5%-1/2 normal saline 1,000 ML IV SCH (12:14)
[2023-06-15 18:00] VITALS: BP 152/82; PULSE 77; RESP 20; TEMP 97.7; O2SAT 99
[2023-06-15 23:21] VITALS: BP 150/78; PULSE 65; RESP 20; TEMP 98.4; O2SAT 98
[2023-06-16 06:00] VITALS: BP 128/70; PULSE 75; RESP 20; TEMP 97.4; O2SAT 97
[2023-06-16 06:10] LABS: ALANINE AMINOTRANSFERASE 121 U/L (12-78); ALBUMIN 2.1 G/DL (3.4-5.0); ALBUMIN/GLOBULIN RATIO 0.5 (1.1-1.5); ALKALINE PHOSPHATASE 98 IU/L (46-116); ANION GAP 13 (8-16); ASPARTATE AMINO TRANSFERASE 19 U/L (10-37); BILIRUBIN,TOTAL 0.2 MG/DL (0.1-1.0); BLOOD UREA NITROGEN 15 MG/DL (7-18); BUN/CREATININE RATIO 7.4 (10.0-20.0); CALCIUM 8.1 MG/DL (8.5-10.1); CHLORIDE 109 MMOL/L (99-107); CREATININE 2.04 MG/DL (0.60-1.10); GLUCOSE 108 MG/DL (70-104); POTASSIUM 3.8 MMOL/L (3.5-5.1); SODIUM 145 MMOL/L (135-145); TOTAL CARBON DIOXIDE 22.9 MMOL/L (24-32); TOTAL PROTEIN 6.3 G/DL (6.4-8.2); eCRCL 38 ML/MIN; eGFR 35 ML/MIN
[2023-06-16 06:11] LABS: BASOPHILS # (AUTO) 0.1 X10'3 (0-0.2); BASOPHILS % (AUTO) 1.3 % (0-1); EOSINOPHILS # (AUTO) 0.3 X10'3 (0-0.9); EOSINOPHILS % (AUTO) 3.6 % (0-6); HEMATOCRIT 27.6 % (42.0-52.0); HEMOGLOBIN 9.3 g/dl (14.0-17.9); LYMPHOCYTES # (AUTO) 1.1 X10'3 (1.1-4.8); LYMPHOCYTES % (AUTO) 13.1 % (21-51); MEAN CORPUSCULAR HEMOGLOBIN 28.1 PG (27.0-31.0); MEAN CORPUSCULAR HGB CONC 33.8 g/dL (33.0-36.5); MEAN CORPUSCULAR VOLUME 83.2 FL (78-98); MEAN PLATELET VOLUME 8.9 FL (7.4-10.4); MONOCYTES # (AUTO) 0.9 X10'3 (0-0.9); MONOCYTES % (AUTO) 10.4 % (2-12); NEUTROPHILS # (AUTO) 6.1 X10'3 (1.8-7.7); NEUTROPHILS % (AUTO) 71.6 % (42-75); PLATELET COUNT 315 X10'3 (140-440); RED BLOOD COUNT 3.31 X10'6 (4.70-6.10); RED CELL DISTRIBUTION WIDTH 13.4 % (11.5-14.5); WHITE BLOOD COUNT 8.4 X10'3 (4.5-11.0)
[2023-06-16 08:40] VITALS: RESP 16
[2023-06-16 10:00] VITALS: BP 140/76; PULSE 77; RESP 16; TEMP 97.6; O2SAT 99
[2023-06-16] MEDS ORDERED: FLUT16SP NS (12:02)
[2023-06-16] MEDS ORDERED: VANCOMYCIN LEVEL IV ONE (12:30)
== END 2023-06-16 13:47 | disposition home or self-care (01) | DRG 580 ==
LOC: ER 09:46 → ED HOLD 12:43 → OBSVTOIN 12:43 → SUR 3N 17:06
PROVIDERS: ADMIT Internal Medicine; ATTEND Internal Medicine
PROC: 0WBF0ZZ Excision of Abdominal Wall, Open Approach (ICD-10-PCS; principal; 2023-06-08)
PROC: 3E0T3BZ Introduction of Anesthetic Agent into Peripheral Nerves and Plexi, Percutaneous Approach (ICD-10-PCS; 2023-06-08)
DX: L02.216 Cutaneous abscess of umbilicus (principal); E87.1 Hypo-osmolality and hyponatremia; L02.211 Cutaneous abscess of abdominal wall; E86.0 Dehydration; R74.01 Elevation of levels of liver transaminase levels; E87.5 Hyperkalemia; K42.9 Umbilical hernia without obstruction or gangrene; Q64.4 Malformation of urachus; Z79.899 Other long term (current) drug therapy; Z88.1 Allergy status to other antibiotic agents
CPT/HCPCS: 99291; Z7506; Z7508; 36415; 71045; 74176; 74177; 76700; 80048; 80053; 80202; 81003; 82948; 83605; 83690; 83735; 84145; 85025; 85610; 85651; 85730; 87040; 87070; 87075; 87077; 87081; 87186; 87207; 93005; 97116; 97161; 97530; A4215; A4314; A4615; A4618; A6253; A6258; A6449; A7000; C9290; G0378; J0131; J1100; J1170; J1650; J1815; J1885; J2175; J2250; J2270; J2405; J2543; J2704; J2710; J3010; J3370; J3490; J7030; J7040; J7050; J7120; Q9958; Q9963; Q9967